=== PATIENT | female | born 2000 | race African-American/Black ===

== ENCOUNTER 2024-08-11 17:13 | Emergency (ER) | payer OTHER ==
[~2024-08-11] VITALS: Ht 162.6 cm; Wt 59.9 kg
[2024-08-11 18:58] LABS: BASO # 0.1 10^3/uL (0.0-0.2); BASO % 0.8 % (0.0-1.0); EOS # 0.1 10^3/uL (0.0-0.5); EOS % 1.6 % (0.0-3.0); HEMATOCRIT 37.5 % (36.0-47.0); HEMOGLOBIN 12.2 g/dl (12.0-15.5); LYMPH # 3.6 10^3/uL (1.5-5.0); LYMPH % 41.8 % (24.0-44.0); MEAN CORPUSCULAR HEMOGLOBIN 27.7 pg (27.0-33.0); MEAN CORPUSCULAR HGB CONC 32.5 g/dl (32.0-36.5); MEAN CORPUSCULAR VOLUME 85.2 fl (80.0-96.0); MONO # 0.9 10^3/uL (0.0-0.8); MONO % 9.8 % (2.0-8.0); NEUTROPHILS % 45.9 % (36.0-66.0); PLATELET COUNT, AUTOMATED 343 10^3/uL (150-450); WHITE BLOOD COUNT 8.6 10^3/uL (4.0-10.0)
[2024-08-11 19:38] LABS: LIPASE 26 U/L (12-53)
[2024-08-11 19:40] LABS: ALBUMIN 3.8 G/DL (3.2-5.2); ALKALINE PHOSPHATASE 68 U/L (35-104); ALT/SGPT 14 U/L (7.0-40); AST/SGOT 19 U/L (<34); BILIRUBIN,DIRECT < 0.1 MG/DL (<0.4); BILIRUBIN,TOTAL 0.3 MG/DL (0.3-1.2); BLOOD UREA NITROGEN 14 MG/DL (9-23); CALCIUM LEVEL 9.2 MG/DL (8.5-10.1); CARBON DIOXIDE LEVEL 28 MMOL/L (20-31); CHLORIDE LEVEL 105 MMOL/L (98-107); CREATININE FOR GFR 0.58 MG/DL (0.55-1.30); GLOMERULAR FILTRATION RATE > 60.0 (>60); GLUCOSE, FASTING 84 MG/DL (60-100); POTASSIUM SERUM 4.3 MMOL/L (3.5-5.1); SODIUM LEVEL 139 MMOL/L (136-145); TOTAL PROTEIN 7.5 G/DL (5.7-8.2)
[2024-08-11 19:52] LABS: HCG, SERUM QUALITATIVE NEGATIVE (NEGATIVE)
[2024-08-11] MEDS: KETOROLAC 30 MG/ML 1ML VIAL IV ONE (19:58)
[2024-08-11 23:25] VITALS: BP 115/59; TEMP 98.3; O2SAT 100
== END 2024-08-11 23:29 | disposition home or self-care (01) ==
LOC: M ED 17:13
DX: N83.292 Other ovarian cyst, left side (principal); R10.9 Unspecified abdominal pain; Z91.09 Other allergy status, other than to drugs and biological substances
CPT/HCPCS: 76856; 80048; 80076; 83690; 84703; 85025; 93976; 96374; 99284; J1885

== ENCOUNTER 2024-11-16 12:25 | Emergency (ER) | payer OTHER ==
[~2024-11-16] VITALS: Ht 162.6 cm; Wt 61.4 kg
[2024-11-16 15:38] VITALS: BP 142/63; TEMP 100.4; O2SAT 100
[2024-11-16] MEDS ORDERED: BENZ200C70 PO (15:49)
== END 2024-11-16 16:03 | disposition home or self-care (01) ==
LOC: M ED 12:25
DX: J06.9 Acute upper respiratory infection, unspecified (principal); Z91.09 Other allergy status, other than to drugs and biological substances; Z79.2 Long term (current) use of antibiotics